=== PATIENT | female | born 1985 | race Caucasian/White ===

== ENCOUNTER 2019-06-14 09:51 | Emergency (ER) | payer OTHER ==
[~2019-06-14] VITALS: Ht 167.6 cm; Wt 65.3 kg
[2019-06-14] MEDS ORDERED: OBSTETRIX DHA1 EACH (10:14)
== END 2019-06-14 13:19 | disposition home or self-care (01) ==
LOC: ER 09:51
DX: O20.0 Threatened abortion (principal); Z3A.11 11 weeks gestation of pregnancy; Z37.9 Outcome of delivery, unspecified